=== PATIENT | male | born 1950 | race Caucasian/White ===

== ENCOUNTER → 2017-04-26 13:50 | Outpatient (CLI) | payer MEDICARE, OTHER ==
[2016-07-09 07:56] VITALS: BMI 25.6
[~2017-04-26 13:50] MED LIST: BAYER CHEWABLE81 MG PO; DILAUDID2 MG PO; FISH OIL 1,2001 CAP PO; MELATONIN 3 MG1 TAB PO; NASACORT10.8 ML NASAL; NIASPAN500 MG PO; PROTONIX40 MG PO; SYNTHROID50 MCG PO; ULTRACET TABLET1 TAB PO; ZOLOFT50 MG PO
== END | disposition home or self-care (01) ==
LOC: D.CT 13:50
DX: R59.0 Localized enlarged lymph nodes (principal)

== ENCOUNTER → 2017-04-30 08:23 | Outpatient (CLI) | payer MEDICARE, OTHER ==
[2016-07-09 07:56] VITALS: BMI 25.6
== END | disposition home or self-care (01) ==
LOC: D.CT 08:23
DX: I65.29 Occlusion and stenosis of unspecified carotid artery (principal)

== ENCOUNTER → 2017-05-06 07:47 | Outpatient (CLI) | payer MEDICARE, OTHER ==
[2016-07-09 07:56] VITALS: BMI 25.6
== END | disposition home or self-care (01) ==
LOC: D.CT 07:47
DX: I65.29 Occlusion and stenosis of unspecified carotid artery (principal)

== ENCOUNTER → 2018-08-23 07:52 | Outpatient (CLI) | payer MEDICARE, OTHER ==
[2016-07-09 07:56] VITALS: BMI 25.6
== END | disposition home or self-care (01) ==
LOC: D.CT 07:52
DX: I65.21 Occlusion and stenosis of right carotid artery (principal)

== ENCOUNTER → 2020-03-20 15:37 | Outpatient (CLI) | payer MEDICARE, OTHER ==
[2016-07-09 07:56] VITALS: BMI 25.6
[2020-03-20 15:56] LABS: HEMATOCRIT 42.9 % (42.0-54.0); HEMOGLOBIN 14.2 g/dL (13.5-17.5); MCH 32.5 pg (26.0-34.0); MCHC 33.1 g/dL (31.0-37.0); MCV 98.2 fL (80.0-100.0); MEAN PLATELET VOLUME 10.8 fL (7.4-10.4); PLATELET COUNT 146 10x3/uL (130-400); RBC 4.37 10x6/uL (4.20-6.10); RDW 13.8 % (11.5-14.5); WBC 3.8 10x3/uL (4.8-10.8)
[2020-03-20 17:43] LABS: EOSINOPHILS 3 % (0-7); LYMPHOCYTES 37 % (15-50); MONOCYTES 8 % (2-11); NEUTROPHILS 52 % (40-80); PLATELET ESTIMATE NORMAL
== END | disposition home or self-care (01) ==
LOC: D.LABREF 15:37
PROVIDERS: ATTEND Legal Medicine
DX: E83.119 Hemochromatosis, unspecified (principal)